=== PATIENT | female | born 1970 | race Caucasian/White ===

== ENCOUNTER 2016-11-04 22:11 | Emergency (ER) | payer OTHER ==
[~2016-11-04] VITALS: Ht 170.2 cm; Wt 98.9 kg
[2016-11-04] MEDS ORDERED: PHEN15CA67 PO (23:11)
[2016-11-04] MEDS ORDERED: KETOROLAC 60 MG/2 ML VIAL IM ONE (23:30)
[2016-11-04] MEDS ORDERED: morphine INJ 10 MG/ML 1ML (SYR OR VIAL) IM ONE (23:30)
[2016-11-05] MEDS ORDERED: TETANUS,DIPTH,PERTUSS P/F (BOOSTRIX) 0.5 ML VIAL IM STA (01:02)
[2016-11-05] MEDS ORDERED: HYDR-3816 PO (01:11)
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
[2016-11-05 01:18] VITALS: BP 139/77
--- NOTE | 2016-11-06 14:23 | Diagnostic Imaging Report ---
3 views of the right shoulder. INDICATION: Injury. FINDINGS: No fracture. The acromioclavicular and glenohumeral joints appear unremarkable. IMPRESSION: Unremarkable exam. Dictated by: Dictated on workstation # [id number]
== END 2016-11-05 01:17 | disposition home or self-care (01) ==
LOC: ER 22:13
DX: S40.211A Abrasion of right shoulder, initial encounter (principal); Z23 Encounter for immunization; F17.210 Nicotine dependence, cigarettes, uncomplicated; V58.4XXA Person boarding or alighting a pick-up truck or van injured in noncollision transport accident, initial encounter; Y99.8 Other external cause status
CPT/HCPCS: 73030; 90471; 90715; 96372; 99283